=== PATIENT | male | born 1960 | race African-American/Black ===

== ENCOUNTER 2021-04-30 21:56 | Emergency (ER) | payer OTHER ==
[~2021-04-30] VITALS: Ht 182.9 cm; Wt 79.4 kg
--- NOTE | 2021-04-30 22:05 | NUR ---
PT BIBRA C/O ALCOHOL INTOXICATION. PT REFUSING TO ANSWER QUESTIONS. PER EMS, PT FOUND IN STREET. PT BREATHING EVENLY AND UNLABORED. PT ATTACHED TO MONITOR AND POX. MD AT BEDSIDE FOR EVAL. PT GIVEN BLANKET AND CALL LIGHT WITHIN REACH
--- NOTE | 2021-05-01 | NUR ---
Patient is resting comfortably in bed with eyes closed. Easily aroused. VSS
--- NOTE | 2021-05-01 04:06 | NUR ---
PT SLEEPING, ATTACHED TO MONITOR AND POX. BREATHING EVENLY AND UNLABORED
--- NOTE | 2021-05-01 10:05 | NUR ---
pt provided w. walker able to ambulate using walker. was provided w/ lunch tray. homeless discharged signed. dischared from ed in stable condition.
[2021-05-01 12:02] VITALS: BP 132/84
== END 2021-05-01 10:05 | disposition home or self-care (01) ==
LOC: ER 22:03
DX: F10.129 Alcohol abuse with intoxication, unspecified (principal); Z60.2 Problems related to living alone

== ENCOUNTER 2021-10-01 16:34 | Emergency (ER) | payer OTHER ==
[~2021-10-01] VITALS: Ht 182.9 cm; Wt 88.5 kg
--- NOTE | 2021-10-01 16:40 | NUR ---
ALMITA FROM [facility] C/O ALTERED MENTAL STATUS STARTED 1 AND 1/2HR AGO [employer]. PATIENT WITHDRAWS TO PAINFUL STIMULI. [id number]. PLACED COMFORTABLY IN BED. ATTACHED TO MONITOR. VITALS CHECKED.
[2021-10-01] MEDS ORDERED: IV NS 0.9% 1,000 ML BAG IV ONE (17:30)
[2021-10-01] MEDS ORDERED: ESCI5TAB PO (17:35)
[2021-10-01] MEDS ORDERED: RISP4TAB70 PO (17:35)
[2021-10-01] MEDS ORDERED: TEMA15CA PO (17:35)
[2021-10-01] MEDS ORDERED: CHLO50TA PO (17:35)
[2021-10-01] MEDS ORDERED: IBUP-1953 PO (17:35)
[2021-10-01] MEDS ORDERED: HYDR-3980 PO (17:35)
[2021-10-01 17:39] LABS: BASOPHILS % (AUTO) 0.1 % (0.0-2.0); EOSINOPHILS % (AUTO) 2.8 % (0.0-6.0); HEMATOCRIT 42 % (39-51); LYMPHOCYTES % (AUTO) 33.3 % (20.0-44.0); MEAN CORPUSCULAR HGB CONC 34 g/dl (31.0-36.0); MEAN CORPUSCULAR VOLUME 88 fL (80-96); MONOCYTES # (AUTO) 0.2 K/uL (0.1-1.30); MONOCYTES % (AUTO) 6.6 % (2.0-12.0); NEUTROPHILS # (AUTO) 1.8 K/uL (1.8-8.9); NEUTROPHILS % (AUTO) 57.2 % (43.0-81.0); PLATELET COUNT (AUTO) 100 K/uL (150-450); RED BLOOD CELL COUNT(AUTO) 4.75 MIL/uL (4.5-6.0); WHITE BLOOD COUNT (AUTO) 3.1 K/uL (4.3-11.0)
[2021-10-01 17:51] LABS: CARBON DIOXIDE 30 mmol/L (21-32); CHLORIDE 104 mmol/L (98-107); CREATININE 0.7 mg/dL (0.6-1.3); GLUCOSE 122 mg/dL (74-106); POTASSIUM 3.7 mmol/L (3.5-5.1); SERUM AMMONIA 19 umol/L (11-32); SODIUM SERUM 138 mmol/L (136-145); UREA NITROGEN, BLOOD 13 mg/dL (7-18)
[2021-10-01 17:57] LABS: ALANINE AMINOTRANSFERASE 35 U/L (12-78); ALBUMIN 3.1 g/dL (3.4-5.0); ALCOHOL, BLOOD < 3 mg/dL (0-0); ALKALINE PHOSPHATASE 85 U/L (46-116); ASPARTATE AMINOTRANSFERASE 48 U/L (15-37); BILIRUBIN,DIRECT 0.5 mg/dL (0.0-0.2); BILIRUBIN,TOTAL 0.9 mg/dL (0.2-1.0); TOTAL PROTEIN, SERUM 7.3 g/dL (6.4-8.2)
--- NOTE | 2021-10-01 18:14 | NUR ---
URINE SPECIMEN SENT TO LAB
--- NOTE | 2021-10-01 18:24 | NUR ---
PATIENT BROUGHT TO CT DEPARTMENT.
--- NOTE | 2021-10-01 18:43 | NUR ---
IV CANNULA G18 INSERTED ON RIGHT AC.
--- NOTE | 2021-10-01 18:44 | NUR ---
CANNOT ANSWER STROKE ASSESSMENT COMPLETELY COZ PATIENT IS OBTUNDED. PER THE EMS, THEY GAVE HIM NARCAN EARLIER.
[2021-10-01 18:52] LABS: BILIRUBIN,URINE NEGATIVE (NEGATIVE); COLOR,URINE YELLOW (YELLOW); LEUKOCYTE ESTERASE ,URINE NEGATIVE (NEGATIVE); NITRITE, URINE NEGATIVE (NEGATIVE); PROTEIN,URINE 100 mg/dl (NEGATIVE); UGLUCOSE NEGATIVE (NEGATIVE)
[2021-10-01 19:12] LABS: RBC,URINE 0-2 /HPF (0-2); WBC,URINE 0-2 /HPF (0-3)
--- NOTE | 2021-10-01 19:15 | NUR ---
PER [facility], REPORTED RESULT FOR URINE BACTERIA IS NONE
[2021-10-01 19:16] LABS: BACTERIA,URINE None seen /HPF (None Seen)
--- NOTE | 2021-10-01 21:00 | NUR ---
COVID SWAB DONE.
--- NOTE | 2021-10-01 21:06 | NUR ---
CODE STROKE ACTIVATED
[2021-10-01] MEDS ORDERED: IOHEXOL-350 100 ML VIAL IV ONE ×2 (21:09→21:16)
[2021-10-01] MEDS ORDERED: IV NS 0.9% 250 ML IV ONE ×2 (21:09→21:17)
--- NOTE | 2021-10-01 21:10 | NUR ---
PT TAKEN TO CT VIA ACLS PROTOCOL
--- NOTE | 2021-10-01 21:10 | NUR ---
PUSHED PT TO CT SCAN FOR CTA OF BRAIN
--- NOTE | 2021-10-01 21:27 | NUR ---
PT RETURNED TO ER BED [address]
--- NOTE | 2021-10-01 21:35 | NUR ---
COVID SWAB DONE AND SENT TO LAB
--- NOTE | 2021-10-01 21:57 | NUR ---
CALLED [employer] TO INFORM PT IS BACK FROM CT
--- NOTE | 2021-10-01 22:02 | NUR ---
NEUROLOGIST WILL DO TELE NEURO ONCE THE CT RESULT IS OUT.
--- NOTE | 2021-10-01 22:04 | NUR ---
DR PAIGE ON [facility]
--- NOTE | 2021-10-01 22:23 | NUR ---
IMAGING SENT TO DR. GEORGES
--- NOTE | 2021-10-01 22:32 | NUR ---
DR. SAHU ON THE PHONE WITH DR. PEGUERO. CAN NOT ACCEPT PT D/T BED AVAILABILITY
--- NOTE | 2021-10-01 22:42 | NUR ---
INITIATED REQUEST GOT HIGHER LEVEL OF CARE WITH [facility]. SPOKE WITH TANK BAILEY. IMAGING REQUEST
--- NOTE | 2021-10-01 22:46 | NUR ---
IMAGING RESULT SENT TO [facility]
--- NOTE | 2021-10-01 22:54 | NUR ---
LYNN FROM [facility] CALLED BACK TO GET MORE CLINICAL INFORMATION REGARDING THE PATIENT.
--- NOTE | 2021-10-01 23:25 | NUR ---
GAIL BAILEY CALLED REQUESTING TO HAVE TRANSFER PAPER READY WITH THE IMAGING. HE SAID HE WILL CALL US BACK ONCE THE AMBULANCE IS READY TO COME PICK PATIENT.
--- NOTE | 2021-10-02 00:01 | NUR ---
[facility] TRANSPORT NURSE AT BEDSIDE FOR PT TRANSPORT TO [facility]. REPORT GIVEN. CLINICAL PACKETS GIVEN WELL
[2021-10-02 00:06] VITALS: BP 168/116
--- NOTE | 2021-10-02 00:06 | NUR ---
PT LEFT ON GURNEY WITH RN AND 2 EMT AT BEDSIDE VIA CCT.
== END 2021-10-02 00:09 | disposition short-term general hospital (02) ==
LOC: ER 18:32
DX: I63.511 Cerebral infarction due to unspecified occlusion or stenosis of right middle cerebral artery (principal); G83.21 Monoplegia of upper limb affecting right dominant side; I11.9 Hypertensive heart disease without heart failure; R29.714 NIHSS score 14; J90 Pleural effusion, not elsewhere classified; Z20.822 Contact with and (suspected) exposure to COVID-19; R41.82 Altered mental status, unspecified; Z86.69 Personal history of other diseases of the nervous system and sense organs
CPT/HCPCS: 36415; 70450; 70496; 70498; 71045; 80048; 80076; 80143; 80307; 80320; 81001; 82140; 83735; 84443; 84484 ×2; 85025; 85730; 87086; 87426; 93005; 96360; 99291; 99292; C9803; J7030; J7050 ×2; Q9967 ×2; G0480